=== PATIENT | female | born 1990 | race American Indian/Alaskan Native ===

== ENCOUNTER 2020-10-30 02:22 | Emergency (ER) | payer OTHER ==
[~2020-10-30] VITALS: Ht 162.6 cm; Wt 49.9 kg
== END 2020-10-30 04:11 | disposition left against medical advice (07) ==
LOC: ER 02:22
DX: R07.89 Other chest pain (principal); Z53.21 Procedure and treatment not carried out due to patient leaving prior to being seen by health care provider
CPT/HCPCS: 93005; 93010